=== PATIENT | female | born 1975 | race American Indian/Alaskan Native ===

== ENCOUNTER 2017-01-10 12:53 | Emergency (ER) | payer BC, OTHER ==
[2017-01-10] MEDS ORDERED: Alum Hydrox/Mag Hydrox/Simeth 30 ML, Lidocaine 2% 15 ML PO ONE ×2 (13:33)
[2017-01-10] MEDS ORDERED: Sodium Chloride 0.9% 10 ML Syringe FLUSH PRN (13:33)
[2017-01-10] MEDS ORDERED: Pantoprazole 40 MG Vial IVPUSH ONE (13:34)
--- NOTE | 2017-01-10 13:40 | EDM.PDOC ---
ED HPI GENERAL MEDICAL PROBLEM - General Chief Complaint: Abdominal Pain Stated Complaint: UPPER ABDOMINAL PAIN Time Seen by Provider: 01/10/17 13:10 Source of Information: Reports: Patient History Limitations: Reports: No Limitations - History of Present Illness INITIAL COMMENTS - FREE TEXT/NARRATIVE: Patient is a 41 year old female c/o epigastric pain with acid reflux. Patient states she's had acid reflux since December of this year. She was placed on Zantac 150 milligrams once a day and due to diarrhea had this decreased to 75 mg a day. She's had better control with the 150mg's. States the pain comes and goes usually worsened with eating. Pain is described as a burning sensation with intermittent cramping. Pain does go away with lying flat but notes worsening acid reflux. She does have a history of ventral hernia that does pop out once in a easily reduced. Again pain comes on with eating and/or drinking. She did have a diet coke earlier today which worsened the symptoms quite severely. Of note patient drinks approximately 4-6 beers every other day. States she does have a problem with alcoholism and may seek help for treatment. She is a type II diabetic on multiple medications. She does a history of recurrent UTIs with some episodes of dysuria as of recent. She has an appointment with urology for the 16 of January and has not been placed on any antibiotics by PCP although has symptoms since has urology appt.Patient has a history of gastric bypass and . Left Upper Abdominal Pain Score (Numeric/FACES): 1 - Related Data Allergies Allergy/AdvReac Type Severity Reaction Status Date / Time No Known Allergies Allergy Verified 08/14/13 18:39 Home Meds: Home Meds Ibuprofen [Motrin] 600 mg PO Q6H PRN #14 tablet 08/31/13 [Rx] Aspirin [Ecotrin] 81 mg PO DAILY 01/10/17 [History] Insulin Glarg,Human.Rec.Analog [Lantus Solostar] 32 units SUBCUT BEDTIME [History] metFORMIN [Glucophage XR] 500 mg PO BIDMEALS 01/10/17 [History] Past Medical History Psychiatric History: Reports: Depression Endocrine/Metabolic History: Reports: Diabetes, Type II Social & Family History - Tobacco Use Smoking Status *Q: Never Smoker Second Hand Smoke Exposure: No - Alcohol Use Days Per Week of Alcohol Use: 0 - Recreational Drug Use Recreational Drug Use: No ED ROS GENERAL - Review of Systems Review Of Systems: ROS reveals no pertinent complaints other than HPI. ED EXAM, GI/ABD - Physical Exam Exam: See Below Exam Limited By: No Limitations General Appearance: Alert, WD/WN, No Apparent Distress Ears: Hearing Grossly Normal Nose: Normal Inspection Throat/Mouth: Normal Voice, No Airway Compromise Neck: Normal Inspection, Supple Respiratory/Chest: No Respiratory Distress, Lungs Clear, Normal Breath Sounds, No Accessory Muscle Use Cardiovascular: Normal Peripheral Pulses, Regular Rate, Rhythm GI/Abdominal Exam: Normal Bowel Sounds, Soft, No Organomegaly, No Distention, Tender (mild epigastric pain upon palpation.) Back Exam: Normal Inspection Neurological: Alert, Oriented, CN II-XII Intact, Normal Cognition, No Motor/ Sensory Deficits Psychiatric: Normal Affect, Normal Mood Skin Exam: Warm, Dry, Intact, Normal Color Course - Vital Signs Last Recorded V/S: Last Vital Signs Temp 96.8 F 01/10/17 12:59 Pulse 95 01/10/17 12:59 Resp BP 131/75 01/10/17 12:59 Pulse Ox 97 01/10/17 12:59 - Orders/Labs/Meds Orders: Active Orders 24 hr Category Date Time Status Peripheral IV Care [RC] . DIRECTED Care 01/10/17 13:33 Active Peripheral IV Insertion Adult [OM.PC] Stat Oth 01/10/17 13:33 Ordered Labs: Laboratory Tests 01/10/17 01/10/17 01/10/17 Range/Units 13:50 13:50 13:57 WBC 8.47 (3.98-10.04) K/mm3 RBC 5.06 (3.98-5.22) M/mm3 Hgb 10.0 L (11.2-15.7) gm/L Hct 32.5 L (34.1-44.9) % MCV 64.2 L (79.4-94.8) fl MCH 19.8 L (25.6-32.2) pg MCHC 30.8 L (32.2-35.5) g/dl RDW Std Deviation 41.6 (36.4-46.3) fL Plt Count 471 H (182-369) K/mm3 MPV 10.5 (9.4-12.3) fl Neut % (Auto) 58.6 (34.0-71.1) % Lymph % (Auto) 32.2 (19.3-51.7) % Robeson % (Auto) 5.3 (4.7-12.5) % Eos % (Auto) 3.2 (0.7-5.8) Baso % (Auto) 0.5 (0.1-1.2) % Neut # (Auto) 4.96 (1.56-6.13) K/mm3 Lymph # (Auto) 2.73 (1.18-3.74) K/mm3 Robeson # (Auto) 0.45 H (0.24-0.36) K/mm3 Eos # (Auto) 0.27 (0.04-0.36) K/mm3 Baso # (Auto) 0.04 (0.01-0.08) K/mm3 Manual Slide Review Abnormal smear C-Reactive Protein 2.0 H* (<1.0) mg/dL Lipase 230 (73-393) U/L HCG, Qual Negative (NEGATIVE) Meds: Medications Discontinued Medications Generic Name Dose Route Start Last Admin Trade Name Freq PRN Reason Stop Dose Admin Al Hydroxide/Mg Hydroxide 30 0 ml 01/10/17 13:33 01/10/17 13:52 ml/ Lidocaine HCl 15 ml PO 01/10/17 13:34 45 ml ONETIME ONE Administration Pantoprazole Sodium 40 mg 01/10/17 13:34 01/10/17 13:52 Protonix Iv IVPUSH 01/10/17 13:35 40 mg ONETIME ONE Administration Sodium Chloride 10 ml 01/10/17 13:33 01/10/17 13:51 Saline Flush FLUSH 10 ml ASDIRECTED PRN Administration Keep Vein Open - Re-Assessments/Exams Free Text/Narrative Re-Assessment/Exam: IV established with lab work obtained including: CBC, chem 14, CRP, hCG, and lipase. Ordered GI cocktail and also Protonix 20 mg IVP. Labs reviewed: White blood cell count 8.47, hemoglobin 10.0, MCV 64.2, platelets 471, CRP 2.0, lipase 2:30, and hCG was negative. With reviewing patient's clinic chart she does have a history of iron deficiency anemia and is taking ferous sulfate. Denies blood in her stool. She refuses hemoccult testing and or any additional testing. Upon reexamination patient states she's developed pain to the left upper quadrant to which she believes is related to gas. On palpation there is some pain noted underneath the rib cage mild intensity with palpation. Minimal at rest. She continues to have some acid reflux. States the GI cocktail did help some. Again offered additional testing to which the patient refuses. She will start taking Prilosec 20 mg every day half hour prior to eating along with Zantac at at bedtime. She' ll see her PCP in the the next week or 2 for reevaluation. Discharge instructions as documented. Departure - Departure Time of Disposition: 15:27 Disposition: Home, Self-Care 01 Condition: Good Clinical Impression: Abdominal pain Qualifiers: Abdominal location: epigastric Qualified Code(s): R10.13 - Epigastric pain Acid reflux disease Qualifiers: Esophagitis presence: without esophagitis Qualified Code(s): K21.9 - Gastro- esophageal reflux disease without esophagitis Alcoholic gastritis Qualifiers: Chronicity: acute Gastritis bleeding: presence of bleeding unspecified Qualified Code(s): K29.20 - Alcoholic gastritis without bleeding Gastritis Qualifiers: Gastritis type: alcoholic Chronicity: acute Gastritis bleeding: presence of bleeding unspecified Qualified Code(s): K29.20 - Alcoholic gastritis without bleeding - Discharge Information Instructions: Abdominal Pain, Adult, [id number] Referrals: PCP,Not In Area [Primary Care Provider] - Forms: ED Department Discharge Additional Instructions: As discussed unclear etiology current complaint. This may be related to gastritis that may be induced by excessive alcohol use. Treatment at this point will start you on Prilosec 20 mg, half hour prior to eating every a.m. and continue taking zantac 75 mg at at bedtime. Refrain from alcohol use, caffeine, spicy foods, or drinks or foods that cause aggravation. Please follow up with your primary care provider in the next 1-2 weeks for reevaluation. Return to the ED if you develop any new or worsening symptoms. - My Orders Last 24 Hours: My Active Orders 01/10/17 13:33 Peripheral IV Care [RC] . DIRECTED Peripheral IV Insertion Adult [OM.PC] Stat - Assessment/Plan Last 24 Hours: My Active Orders 01/10/17 13:33 Peripheral IV Care [RC] . DIRECTED Peripheral IV Insertion Adult [OM.PC] Stat
== END 2017-01-10 15:41 | disposition home or self-care (01) ==
LOC: JD.ED 12:53
DX: K29.20 Alcoholic gastritis without bleeding (principal); K21.9 Gastro-esophageal reflux disease without esophagitis; E11.9 Type 2 diabetes mellitus without complications; Z79.82 Long term (current) use of aspirin; Z79.4 Long term (current) use of insulin
CPT/HCPCS: 36415; 83690; 84703; 85025; 86140; 96374; 99284; A9270; C9113; J7050